=== PATIENT | male | born 1945 | race Caucasian/White ===

== ENCOUNTER 2021-08-03 09:34 | Inpatient (IN) | payer OTHER, SELFPAY ==
[2021-08-03] VITALS (14 sets, daily range): BP systolic 136–160; BP diastolic 80–99; PULSE 62–102; RESP 14–30; TEMP 36.2–36.9; O2SAT 95–99; BMI 21.4
--- NOTE | ~2021-08-03 | CT_ITS ---
EXAMINATION: CT brain wo con INDICATION: Left-sided numbness and tingling, gait abnormality COMPARISON: None TECHNIQUE: Standard unenhanced head CT. The dose-length product (DLP) was 605.33 mGy-cm. The mA was a djusted according to patient size. Iterative reconstruction technique was employed. FINDINGS: There is no acute intraparenchymal hemorrhage. No evidence of mass lesion. There is a subtl e area of low attenuation in the right thalamus.. There is mild periventricular and subcortical hypod ensity probably related to small vessel ischemic disease. There is mild prominence of the sulci and v entricles related to cerebral atrophy. Intracranial calcified cerebral atherosclerosis is noted. Ther e are no extra-axial collections. There is no mass effect or midline shift. The orbits and soft tissu es are unremarkable. The visualized sinuses and mastoid air cells are well aerated. IMPRESSION: 1. Subtle area of low attenuation of the right thalamus which could reflect early subacute infarct. 2. Age related findings. Reviewed, dictated and finalized at location A. IMPRESSION: 1. Subtle area of low attenuation of the right thalamus which could reflect ear ly subacute infarct. 2. Age related findings.
--- NOTE | ~2021-08-03 | US_ITS ---
EXAMINATION: US carotid duplex BI DATE: 08/03/2021 17:24 INDICATION: Stroke TECHNIQUE: Grayscale, color Doppler, and pulsed Doppler images of the cervical carotid arteries were obtained. The degree of vessel stenosis is placed in one of the following categories: normal, <50%, 5 0-69%, >=70% but less than near-occlusion, near-occlusion, or total occlusion. Note that percent sten osis relative to normal distal artery lumen diameter is indirectly measured from velocity measurement s as described by Rishi, et al. Radiology 2003; 229:340-346. COMPARISON: None. FINDINGS: RIGHT: The right common carotid artery (CCA) peak systolic velocity (PSV) is 76 cm/s. The right internal car otid artery (ICA) PSV is 72 cm/s. The right ICA end-diastolic velocity (EDV) is 20 cm/s. The right IC A/CCA PSV ratio is 0.9. Grayscale and color Doppler images yield an estimate of <50% diameter reducti on from plaque in the ICA. The external carotid artery (ECA) PSV is 115 cm/s. There is antegrade flow in the right vertebral artery. LEFT: The left CCA PSV is 83 cm/s. The left ICA PSV is 98 cm/s. The left ICA EDV is 25 cm/s. The left ICA/C CA PSV ratio is 1.2. Grayscale and color Doppler images yield an estimate of <50% diameter reduction from plaque in the ICA. The ECA PSV is 79 cm/s. The left vertebral artery is not identified. The flow void for the intracranial left vertebral artery appears diminutive on the prior MRI imaging also per formed on 08/04/2021. IMPRESSION: 1. <50% stenosis in the right internal carotid artery. 2. <50% stenosis in the left internal carotid artery. 3. Nonvisualization of the left vertebral artery, the intracranial portion of which appears diminutiv e on immediately prior MRI imaging of the head. Most commonly this is developmental although differen tial would include a more proximal high-grade stenosis. Reviewed, dictated and finalized at location A. IMPRESSION: 1. <50% stenosis in the right internal carotid artery. 2. <50% stenosis in the left internal carotid artery. 3. Nonvisualization of the left vertebral artery, the intracranial portion of w calebh appears diminutive on immediately prior MRI imaging of the head. Most comm only this is developmental although differential would include a more proximal high-grade stenosis.
--- NOTE | ~2021-08-03 | MR_ITS ---
EXAMINATION: MR brain/brain stem wo/w con DATE: 08/03/2021 16:48 INDICATION: Stroke 5 days prior with left upper extremity numbness and tingling and changing gait TECHNIQUE: Magnetic resonance imaging (MRI) of the brain and brainstem was performed without and with 13 mL Multihance intravenous contrast. Sequences included sagittal and axial T1-weighted SE, axial d iffusion-weighted FS SE, axial T2*-weighted GRE, axial T2-weighted FLAIR, and axial T2-weighted FSE. Postcontrast axial and coronal T1-weighted SE was obtained. Apparent diffusion coefficient (ADC) maps were created. COMPARISON: None. FINDINGS: There is a small focus of restricted diffusion at the right thalamus consistent with increased T2 sig nal consistent with acute to early subacute infarct. No intracranial hemorrhage or abnormal intracran ial mass lesion. There are additional scattered areas of nonspecific increased T2-weighted signal int ensity in the cerebral white matter, predominantly involving the deep and periventricular white matte r. There are no intraparenchymal signal abnormalities seen on the other pulse sequences. The ventricl es are symmetric and normal in size. There are no abnormal extra-axial fluid collections. Flow voids are seen in the cerebral arteries on the T2-weighted sequences consistent with their expected patency . The right vertebral artery is dominant with diminutive left vertebral artery. Moderate to severe ce rvical spondylosis. Mild mucoperiosteal thickening the bilateral ethmoid sinuses. Visualized orbits a nd soft tissues are unremarkable. There are no areas of abnormal enhancement on the post contrast agnieszka ges. IMPRESSION: 1. Small acute to early subacute infarct of the right thalamus. 2. Typical pattern of nonspecific periventricular predominant scattered white matter T2 hyperintensit y consistent with chronic small vessel ischemic disease. Reviewed, dictated and finalized at location A. IMPRESSION: 1. Small acute to early subacute infarct of the right thalamus. 2. Typical pattern of nonspecific periventricular predominant scattered white m atter T2 hyperintensity consistent with chronic small vessel ischemic disease.
--- NOTE | ~2021-08-03 | CT_ITS ---
EXAMINATION: CTA BRAIN/CAROTID DATE: 08/04/2021 17:41 INDICATION: Stroke. TECHNIQUE: Computed tomographic angiography (CTA) of the head and neck was performed with 200 mL Omni paque-300 intravenous contrast. Multiplanar reconstructions and maximum intensity projection 3D-recon structions of the carotid arteries and of the intracranial arteries were created by the technologist on a separate workstation. Precontrast CT of the head was also obtained. Automated exposure control and iterative reconstruction technique were employed.The dose-length product was 2690.78 mGy-cm. COMPARISON: Head CT and brain MR dated 08/03/2021 FINDINGS: Carotid arteries: There is atherosclerotic plaque along the bilateral common carotid arteries and lateral carotid bulbs . There is 0% stenosis of both the left and right carotid bulbs relative to normal distal artery lume n diameter (NASCET criteria). Thoracic aorta is normal in caliber with no significant atherosclerotic plaque or dissection. Mild biapical pleural-parenchymal scarring. Superior mediastinum and cervical soft tissues are unremarkable. Severe cervical spondylosis. Head: Again seen is a small subacute lacunar infarct at the right thalamus. No acute intracranial hemorrhag e, acute infarction or abnormal extra axial fluid collection. There is mild scattered white matter hy poattenuation consistent with chronic small vessel ischemic disease. Ventricles are normal and symme tric. Small arachnoid granulation along the superior sagittal sinus. No mass/mass effect. The orbits, paranasal sinuses and mastoid air cells are normal. Intracranial arteries Atherosclerotic calcification without hemodynamically significant stenosis along the bilateral caroti d siphons. The right vertebral artery is dominant. The distal basilar artery is diminutive supplying a patent right P1 segment. The majority of the flow to the right posterior cerebral artery and the ex clusive supply to the left posterior cerebral artery comes from the internal carotid arteries via a l arger caliber bilateral posterior communicating arteries. Bilateral A1 segments are patent. There is no hemodynamically significant stenosis in the vertebral, basilar and internal carotid arteries. Ther e are no aneurysms or thrombosis or dissection identified. Cerebral arterial arborization appears sy mmetric. IMPRESSION: 1. Atherosclerotic plaque with 0% stenosis of the left and right carotid bulbs relative to normal dis gopi artery lumen diameter (NASCET criteria). 2. Subacute right thalamic infarct. 3. 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 Reviewed, dictated and finalized at location A. IMPRESSION: 1. Atherosclerotic plaque with 0% stenosis of the left and right carotid bulbs relative to normal distal artery lumen diameter (NASCET criteria). 2. Subacute right thalamic infarct. 3. 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
--- NOTE | 2021-08-03 11:26 | ECG_ITS ---
Measurements Intervals [place] Rate: 75 P: 75 SC: 192 QRS: 28 QRSD: 86 T: 39 QT: 365 QTc: 409 Interpretive Statements SINUS RHYTHM EARLY PRECORDIAL R/S TRANSITION BORDERLINE ECG Electronically Signed On 08-03-2021 11:46:17 CDT by Clinton Hoyos D.O.
[2021-08-03 11:44] LABS: Basophils Absolute Auto 0.1 K/mm3 (0.0-0.1); Basophils Percent Auto 0.9 % (0.2-1.2); Eosinophils Percent Auto 0.7 % (0-4.4); Hematocrit 45.4 % (42.0-52.0); Hemoglobin 15.2 g/dL (14.0-18.0); Immature Granulocyte Absolute 0.02 K/mm3 (0.00-0.031); Immature Granulocyte Percent A 0.3 % (0-0.5); Lymphocytes Absolute Auto 1.56 K/mm3 (0.9-3.2); Lymphocytes Percent Auto 26.7 % (18.3-44.2); Mean Corpuscular HGB Conc 33.5 g/dl (32-36); Mean Corpuscular Hemoglobin 32.3 pg (26-34); Mean Corpuscular Volume 96.4 fl (80-100); Monocytes Absolute Auto 0.8 K/mm3 (0.1-0.6); Monocytes Percent Auto 13.7 % (2.6-8.5); Neutrophils Absolute Auto 3.4 K/mm3 (1.3-6.7); Neutrophils Percent Auto 57.7 % (45.5-73.1); Platelet Count Result 316 k/mm3 (150-375); Red Blood Count 4.71 M/mm3 (4.6-6.20); Red Cell Distribution Width 12.7 % (11.5-14.5); White Blood Count 5.8 K/mm3 (4.5-10.0)
[2021-08-03 12:02] LABS: INR 1.1; Prothrombin Time 13.3 Seconds (11.1-14.7)
[2021-08-03 12:03] LABS: Partial Thromboplastin Time 29.6 SECONDS (22.3-36.8)
[2021-08-03 12:25] LABS: Alanine Aminotransferase 12 U/L (6-50); Albumin Level 4.3 g/dL (3.5-5.1); Alkaline Phosphatase 81 U/L (38-126); Anion Gap 4 mmol/L (8-16); Aspartate Amino Transferase 43 U/L (17-59); Bilirubin,Total 0.4 mg/dL (0.2-1.3); Blood Urea Nitrogen 15 mg/dL (9-20); Calcium 9.1 mg/dL (8.4-10.2); Carbon Dioxide 30 mmol/L (22-30); Chloride 104 mmol/L (98-107); Estimated CRCL calculation 64 ml/min; Estimated Glomerular Filt Rate > 60; Glucose 112 mg/dL (65-110); Potassium 4.1 mmol/L (3.4-5.0); Sodium 138 mmol/L (137-145)
[2021-08-03 12:34] LABS: Troponin I < 0.012 ng/mL (0.000-0.034)
--- NOTE | 2021-08-03 12:36 | ED.NEUROSD ---
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 Patient keeps dropping stuff out of his left hand. Patient does not take medicine at home, does not smoke or uses drugs, drinks daily. Patient lives with . He denies fever, chills, nausea, vomiting, chest pain, shortness of breath, headache or trauma Related Data Home Medications Medication Instructions Recorded Confirmed No Home Medications 08/03/21 Allergies Allergy/AdvReac Type Severity Reaction Status Date / Time No Known Allergies Allergy Verified 08/03/21 11:24 Review of Systems Review of Systems: All systems reviewed & are unremarkable except as noted in HPI and below Exam Narrative: General appearance: Well-developed, well-nourished Skin: Normal color Head: Normocephalic, nontraumatic Eyes: Clear conjunctiva ENT: Oropharynx normal, ears normal, nose normal Neck: Supple, nontender Chest and respiratory: Airway patent, no respiratory distress, no accessory muscle use Heart: Regular rate/rhythm Abdomen: Soft, nontender, no organomegaly, quiet bowel sounds Vascular: Normal peripheral pulses, normal capillary refill. Musculoskeletal: Normal range of motion, nontender back Neurologic: Alert and oriented ?3, restless, shaky Course Course Emergency Course: Acute CVA, started 7 days ago, CAT scan showed infarction, admission to hospitalist, consult neurologist. Currently patient is restless could be secondary to alcoholism, last drink was last night Consultations Consultation #1: Dr. Leonard Date: 08/03/21 Time: 13:00 Vital Signs Vital signs: Vital Signs Temperature 36.9 C 08/03/21 10:00 Pulse Rate 81 08/03/21 10:00 Respiratory Rate 16 08/03/21 10:00 Blood Pressure 160/87 H 08/03/21 10:00 Pulse Oximetry 95 08/03/21 10:00 Temperature 36.2 C L 08/03/21 11:25 Pulse Rate 82 08/03/21 12:30 Respiratory Rate 14 08/03/21 12:30 Blood Pressure 136/80 08/03/21 12:30 Pulse Oximetry 98 08/03/21 12:30 MDM - Neuro Symptoms/Deficit Differential Diagnosis Differential diagnosis: Likely subarachnoid hemorrhage, cerebrovascular accident and transient cerebral ischemia Lab Data Result diagrams: 08/03/21 11:34 08/03/21 12:07 Labs: Lab Results 08/03/21 08/03/21 08/03/21 Range/Units 11:34 11:34 12:07 WBC 5.8 (4.5-10.0) K/mm3 RBC 4.71 (4.6-6.20) M/mm3 Hgb 15.2 (14.0-18.0) g/dL Hct 45.4 (42.0-52.0) % MCV 96.4 (80-100) fl MCH 32.3 (26-34) pg MCHC 33.5 (32-36) g/dl RDW 12.7 (11.5-14.5) % Plt Count 316 (150-375) k/mm3 MPV 9.0 (7.4-10.4) fl Immature Gran % (Auto) 0.3 (0-0.5) % Neut % (Auto) 57.7 (45.5-73.1) % Lymph % (Auto) 26.7 (18.3-44.2) % Gila % (Auto) 13.7 H (2.6-8.5) % Eos % (Auto) 0.7 (0-4.4) % Baso % (Auto) 0.9 (0.2-1.2) % Lymph # (Auto) 1.56 (0.9-3.2) K/mm3 Gila # (Auto) 0.8 H (0.1-0.6) K/mm3 Eos # (Auto) 0.0 (0-0.3) K/mm3 Baso # (Auto) 0.1 (0.0-0.1) K/mm3 Abs Immat Gran (auto) 0.02 (0.00-0.031) K/mm3 Absolute Neuts (auto) 3.4 (1.3-6.7) K/mm3 Absolute Nucleated RBC 0.0 (0.0-0.012) K/mm3
[2021-08-03] MEDS: ASPIRIN 325 MG TABLET PO (15:02)
--- NOTE | 2021-08-03 15:39 | ADMGEN ---
This patient, Ibrahima Bowie, was admitted to [facility] Surg Room 319-01. Patient/family oriented to hospital policies and general routines including ID bracelet, bed and alarms, visiting hours, pain management, procedures, bathroom and other care routines, personal items, smoking policy, room service/diet, and visiting hours. Information on how to activate the Rapid Response Team has been discussed. Patient/Family are encouraged to report perceived risks to care and to ask questions if they do not understand what they are told or what they should do.
--- NOTE | 2021-08-03 16:15 | PC.NURSE ---
to MRI per w/c
--- NOTE | 2021-08-03 16:50 | WPDNEURCNPN ---
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 and feeling unsteady while walking also complaining of dropping stuff out of his left hand he does not take any medication at home does not smoke does not take drugs though he drinks daily and lives with his gave no history of any other associated generalized symptomatology he was not taking any medication he is not allergic to any medications initial examination revealed him to have normal vital signs except the blood pressure 160/87 with subsequently came down to 136/80 routine lab was normal, patient has been admitted for further evaluation Review of Systems Review of Systems: All systems reviewed & are unremarkable except as noted in HPI and below PMFSH Social History Social History Smoking status: Never smoker Alcohol intake: current Drinks per week: 14 Substance use: former Substance use type: marijuana Last use: 1969 Spiritual care concerns: No Meds Home Medications and Allergies Home Medications Medication Instructions Recorded Confirmed Type No Home Medications 08/03/21 08/03/21 History Allergies Allergy/AdvReac Type Severity Reaction Status Date / Time No Known Allergies Allergy Verified 08/03/21 16:24 Vital Signs Vital Signs - 24 hr 08/03/21 10:00 08/03/21 11:25 08/03/21 11:35 Temperature 36.9 C 36.2 C L Pulse Rate 81 80 89 Respiratory Rate 16 17 16 Blood Pressure 160/87 H 142/88 H 142/93 H Pulse Oximetry 95 99 99 08/03/21 12:07 08/03/21 12:15 08/03/21 12:30 Temperature Pulse Rate 82 82 82 Respiratory Rate 20 18 14 Blood Pressure 136/80 Pulse Oximetry 96 97 98 08/03/21 12:45 08/03/21 13:34 08/03/21 13:45 Temperature Pulse Rate 102 H 85 91 Respiratory Rate 23 H 16 30 H Blood Pressure Pulse Oximetry 08/03/21 14:00 08/03/21 14:17 08/03/21 16:00 Temperature Pulse Rate 89 96 90 Respiratory Rate 22 H 23 H Blood Pressure 136/84 Pulse Oximetry 99 Results Labs CBC & Chem 7: 08/03/21 11:34 08/03/21 12:07 Labs: Short CBC 08/03/21 Range/Units 11:34 WBC 5.8 (4.5-10.0) K/mm3 Hgb 15.2 (14.0-18.0) g/dL Hct 45.4 (42.0-52.0) % Plt Count 316 (150-375) k/mm3 BMP 08/03/21 12:07 Sodium 138 Potassium 4.1 Chloride 104 Carbon Dioxide 30 BUN 15 Creatinine 0.80 Glucose 112 H Calcium 9.1 Cardiac Enzymes 08/03/21 08/03/21 Range/Units 12:07 12:07 Troponin I Cancelled < 0.012 Liver Function 08/03/21 Range/Units 12:07 Total Bilirubin 0.4 (0.2-1.3) mg/dL AST 43 (17-59) U/L ALT 12 (6-50) U/L Alkaline Phosphatase 81 (38-126) U/L Albumin 4.3 (3.5-5.1) g/dL
--- NOTE | 2021-08-03 19:56 | PM.IMHP ---
H&P: HPI History of Present Illness Date/Time: Patient requires inpatient monitoring with expected length of stay to exceed 2 midnights for management of care. 08/03/21 19:56 Chief Complaint: Left-sided weakness Narrative: Mr. Bowie is a 76-year-old gentleman who presented emergency room with complaints numbness and tingling to his left hand and foot that started 5 days ago. Patient states that 5 days ago he noticed some weakness to his left arm and tingling in his fingertips. Patient states that it progressively got worsened on he noticed left arm numbness and some mild lightheadedness and dizziness. Patient states that on Tuesday he then fell. Patient states that he did not want to come the emergency room for further evaluation because he did not think much of his symptoms. Patient denies any facial droop, slurring of speech, dysphagia, double vision, blurred vision, syncopal episodes, or near syncopal episodes. Patient states he does continue to have some numbness to his left finger tips and to his left rib cage. Upon evaluation emergency room patient underwent CT scan that showed subtle area of low attenuation of the right thalamus which could reflect early subacute infarct. Emergency room notified [facility] and since patient was outside of window for any intervention SP it was decided the patient be treated at this establishment. Neurology has been consulted. Patient states he has no past medical history and takes no medications at home. Patient states he does not smoke and has never smoked. Patient states he drinks approximately 2 beers today and has not had any surgeries. Review of Systems Review of Systems: A 12 point review of systems was completed patient all pertinent positive and negative per HPI the remainder are unremarkable. [facility] Past Medical History Medical History (Updated 08/03/21 @ 20:02 by Rin Beasley APRN) No pertinent past medical history Surgical History Surgical History (Updated 08/03/21 @ 20:02 by Rin Beasley APRN) No pertinent past surgical history Social History Social History Smoking status: Never smoker Alcohol intake: current Drinks per week: 14 Substance use: former Substance use type: marijuana Last use: 1969 Spiritual care concerns: No Meds Home Medications and Allergies Home Medications Medication Instructions Recorded Confirmed Type No Home Medications 08/03/21 08/03/21 History Allergies Allergy/AdvReac Type Severity Reaction Status Date / Time No Known Allergies Allergy Verified 08/03/21 16:24 Vital Signs Vital Signs - 24 hr 08/03/21 10:00 08/03/21 11:25 08/03/21 11:35 Temperature 36.9 C 36.2 C L Pulse Rate 81 80 89 Respiratory Rate 16 17 16 Blood Pressure 160/87 H 142/88 H 142/93 H Pulse Oximetry 95 99 99 08/03/21 12:07 08/03/21 12:15 08/03/21 12:30 Temperature Pulse Rate 82 82 82 Respiratory Rate 20 18 14 Blood Pressure 136/80 Pulse Oximetry 96 97 98 08/03/21 12:45 08/03/21 13:34 08/03/21 13:45 Temperature Pulse Rate 102 H 85 91 Respiratory Rate 23 H 16 30 H Blood Pressure Pulse Oximetry 08/03/21 14:00 08/03/21 14:17 08/03/21 16:00 Temperature Pulse Rate 89 96 90 Respiratory Rate 22 H 23 H Blood Pressure 136/84 Pulse Oximetry 99 Exam Narrative: Constitutional: Patient is well-nourished in no acute distress. Patient is alert and oriented x3 HEENT: Moist mucous membranes. No scleral icterus. No lymphadenopathy. Neck: No carotid bruits noted no JVD noted Lungs: Lung sounds are clear to auscultation bilaterally. No accessory muscle use. No rhonchi, rales, or wheezes noted. Cardiovascular: Apical pulse is regular rate and rhythm. S1-S2 noted, no S3 or S4 noted. No gallops, murmurs, or rubs noted. Abdomen: Soft, round, and nontender. No palpable masses. Extremities: No edema. Nontender.
[2021-08-04] VITALS (9 sets, daily range): BP systolic 120–136; BP diastolic 74–95; PULSE 73–82; RESP 18–20; TEMP 36.1–36.9; O2SAT 97–100
--- NOTE | 2021-08-04 | ECHO_ITS ---
Patient Info Name: Ibrahima Bowie Age: 76 years : 1945 Gender: Male Ht: 69 in Wt: 145 lbs BSA: 1.79 m2 HR: 66 bpm BP: 145 / 99 mmHg Technical Quality: Fair Exam Date: 08/04/2021 9:10 AM Exam Location: [facility] Patient Status: Inpatient Admit Date: 08/03/2021 Staff Ordering Physician: Rin Beasley APRN Environmental Services Aide: Bijan Carmichael RDCS, RT Attending Provider: Mercedes Vega MD Referring Physician: Layla JORDAN Exam Type: CA echo doppler color flow Study Info Indications I63.119 - Cerebral infarction due to embolism of unspecified vertebral artery Complete two-dimensional, color flow and Doppler transthoracic echocardiogram is performed. Strain analysis performed. Summary 1. Complete two-dimensional, color flow and Doppler transthoracic echocardiogram is performed. 2. Left ventricular chamber dimension is normal. 3. Left ventricular systolic function is normal, estimated at 60-65%. 4. The left ventricular diastolic function is grade I diastolic dysfunction. 5. E/e' 5 is not elevated. 6. Global longitudinal strain is normal at -17.4%. 7. There is mild aortic valve sclerosis. 8. There is mild to moderate aortic valve regurgitation. 9. There is mild mitral valve regurgitation. 10. There is trace tricuspid valve regurgitation. 11. Dilated inferior vena cava with >50% collapse upon inspiration consistent with elevated right atrial pressure, 10 mmHg. Left Ventricle E/e' 5 is not elevated. Global longitudinal strain is normal at -17.4%. The left ventricular diastolic function is grade I diastolic dysfunction. Left ventricular chamber dimension is normal. Left ventricular systolic function is normal, estimated at 60-65%. Right Ventricle Right ventricular systolic function is normal and with normal TAPSE 2.0 cm. Right ventricular chamber dimension is normal. Left Atria Left atrial chamber dimension is normal. Right Atria Right atrial chamber dimension is normal. Aortic Valve The aortic valve is trileaflet. There is mild aortic valve sclerosis. There is no aortic valve stenosis. There is mild to moderate aortic valve regurgitation. Pulmonic Valve There is no pulmonic regurgitation. Mitral Valve There is no mitral valve stenosis. There is mild mitral valve regurgitation. Tricuspid Valve RVSP is not calculated due to an inadequate TR jet. There is trace tricuspid valve regurgitation. Pericardium/Pleural There is no pericardial effusion. Inferior Vena Cava Dilated inferior vena cava with >50% collapse upon inspiration consistent with elevated right atrial pressure, 10 mmHg. Aorta The aortic root size at the sinus of Valsalva is normal. Left Ventricular Outflow Tract Name Value Normal LVOT 2D LVOT Diameter 2.2 cm LVOT Doppler LVOT Peak Gradient 3 mmHg LVOT Mean Gradient 2 mmHg LVOT VTI 16 cm LVOT VTI/AV VTI Ratio 0.8 LVOT Stroke Volume 61 ml LVOT CO 4.5 l
--- NOTE | 2021-08-04 09:18 | PCOTNOTE ---
Attempted OT evaluation, unable to complete at this time due to active bedrest orders, RN placed a call to hospitalist, will follow and attempt when bedrest orders are removed.
[2021-08-04] MEDS: ASPIRIN 81 MG CHEWABLE TABLET PO (11:08)
[2021-08-04] MEDS: ENOXAPARIN 40 MG/0.4 ML SYRINGE SUB-Q (11:08)
[2021-08-04] MEDS: ATORVASTATIN 20 MG TABLET PO (11:08)
--- NOTE | 2021-08-04 12:15 | PM.DS ---
DS: Admitting Diagnosis Discharge Date 08/04/2021 Admitting Diagnosis CVA right thalamus DS: Discharge Diagnosis Discharge Diagnosis (1) Cerebrovascular accident: Qualifiers: CVA mechanism: unspecified Qualified Code(s): I63.9 - Cerebral infarction, unspecified Code(s): I63.9 - Cerebral infarction, unspecified Status: Acute Assessment and Plan: Neurology has been consult and appreciate further recommendations. Echocardiogram did not reveal acute cardiopulmonary abnormalities Carotid Dopplers negative for acute findings Patient was placed on aspirin, atorvastatin and metoprolol Encouraged to follow-up with neurology DS: Summary Hospital Course Reason for hospitalization: Numbness and tingling to the left extremity Right pelvis CVA Hospital Course: 76-year-old gentleman with no past medical history, patient reports alcohol consumption, 2 beers daily. Denies smoking. Who presented emergency room with complaints numbness and tingling to his left hand and foot that started 5 days ago. Patient states that 5 days ago he noticed some weakness to his left arm and tingling in his fingertips. Patient states that it progressively got worsened on he noticed left arm numbness and some mild lightheadedness and dizziness. Patient states that on Tuesday he then fell. Patient states that he did not want to come the emergency room for further evaluation because he did not think much of his symptoms. Patient denies any facial droop, slurring of speech, dysphagia, double vision, blurred vision, syncopal episodes, or near syncopal episodes. Patient states he does continue to have some numbness to his left finger tips and to his left rib cage. Upon evaluation emergency room patient underwent CT scan that showed subtle area of low attenuation of the right thalamus which could reflect early subacute infarct. Emergency room notified [facility] and since patient was outside of window for any intervention SP it was decided the patient be treated at this establishment. Neurology was consulted from the emergency department. During the patient's hospitalization carotid Dopplers were obtained which is negative for acute findings, echocardiogram and Neurology was consulted and followed the patient on the floor. Patient was started on aspirin and atorvastatin. As well as metoprolol for blood pressure control. Patient was agreeable to following up with Neurology as an outpatient. He was educated on signs symptoms to follow and monitor for in the future. No acute events reported by RN during the night. Status at Discharge Cognitive/behavioral status at discharge: She is alert and oriented x4 Functional status at discharge: independent ambulation Overall status at discharge: patient is back to baseline Time Spent with Patient Time attestation: Total time spent providing and/or coordinating discharge services: Time spent: Less than 30 minutes Exam Narrative: Constitutional: Patient is well-nourished in no acute distress. Patient is alert and oriented x3 HEENT: Moist mucous membranes. No scleral icterus. No lymphadenopathy. Neck: No carotid bruits noted no JVD noted Lungs: Lung sounds are clear to auscultation bilaterally. No accessory muscle use. No rhonchi, rales, or wheezes noted. Cardiovascular: Apical pulse is regular rate and rhythm. S1-S2 noted, no S3 or S4 noted. No gallops, murmurs, or rubs noted. Abdomen: Soft, round, and nontender. No palpable masses. Extremities: No edema. Nontender. Skin: No rashes or lesions. Warm and dry. Skin is intact. Neurological: No focal neurological deficits. Cranial nerves II-XII grossly intact. Psychiatric: Cooperative, appropriate mood, and affect DS: Data Data Completed and Pending Labs on day of discharge: Labs from last 24 hours 08/03/21 12:07 Sodium 138 Potassium 4.1 Chloride 104 Carbon Dioxide 30 Anion Gap 4 L BUN 15 Creatinine 0.
--- NOTE | 2021-08-04 13:39 | PM.IMPN ---
Progress Note: A&P Assessment and Plan (1) Cerebrovascular accident: Qualifiers: CVA mechanism: unspecified Qualified Code(s): I63.9 - Cerebral infarction, unspecified Code(s): I63.9 - Cerebral infarction, unspecified Status: Acute Assessment and Plan: Neurology has been consult and appreciate further recommendations. Echocardiogram did not reveal acute cardiopulmonary abnormalities Carotid Dopplers negative for acute findings Patient was placed on aspirin, atorvastatin and metoprolol Encouraged to follow-up with neurology Pending CTA of the brain and neck to visualize a carotid that was not appropriately seen in previous imaging Subjective Date/time seen: 08/04/21 13:39 Patient is alert and oriented x4. He was up walking around in his room. He is very anxious. Patient reports he drinks 2 alcoholic beverages a night as well as gin and tonics. Dr. Diallo evaluated the patient this morning and images. Patient will stay an additional night for a CTA of the brain and neck due to poor visualization of artery on previous studies. Patient has been started on aspirin, atorvastatin and beta-blanquita. Patient denies any acute pain or acute deficits. Review of Systems Review of Systems: All systems reviewed & are unremarkable except as noted in HPI and below Exam Narrative: General: No acute distress. Mental Status: Awake, alert and oriented to person, place, and time with clear speech. Skin: Skin in warm, dry and intact without rashes or lesions. Head: Normocephalic and atraumatic. Eyes: Conjunctivae are clear without exudates or hemorrhage. Sclera is non-icteric. EOM are intact, PERRLA. Ears: The external ear and canal are non-tender and without swelling or discharge. Nose: Nasal mucosa is pink and moist. Septum midline. Nares patent bilaterally. Throat: Oral mucosa pink and moist with good dentition. Tongue midline. Neck: The neck supple without adenopathy. Trachea midline. No JVD. Cardiac: S1 and S2 regular rate and rhythm. No murmurs, gallops, or rubs auscultated. Respiratory: Chest wall symmetric, nontender and without deformity or trauma. Respirations even and unlabored. Lung sounds are clear to auscultation in all lobes bilaterally without wheezes, rhonchi, or rales. Abdominal: Abdomen soft, round and non-tender to palpation. Bowel sounds present and normoactive in all 4 quadrants. Spine: Neck and back with grossly normal curvature, no deformity in appearance or signs of trauma. Extremities: Upper and lower extremities atraumatic without tenderness or deformity. Full range of motion and muscle strength 5/5 to all extremities bilaterally. Neurological: Full and symmetric motor and light touch sensation bilaterally. Cranial nerves II-XII grossly intact. Objective Data Vital Signs Vital Signs: Vital Signs - 24 hr 08/03/21 13:45 08/03/21 14:00 08/03/21 14:17 Temperature Pulse Rate 91 89 96 Respiratory Rate 30 H 22 H 23 H Blood Pressure 136/84 Pulse Oximetry 99 08/03/21 16:00 08/03/21 20:00 08/03/21 22:00 Temperature 97.8 F Pulse Rate 90 72 62 Respiratory Rate 18 Blood Pressure 145/99 H Pulse Oximetry 96 08/04/21 00:00 08/04/21 04:00 08/04/21 06:00 Temperature 98.4 F Pulse Rate 81 74 80 Respiratory Rate 18 Blood Pressure 120/95 H Pulse Oximetry 100 Intake/Output Intake/Output: Intake & Output 08/01/21 08/02/21 08/03/21 08/04/21 23:59 23:59 23:59 23:59 Intake Total 1740 1100 Balance 1740 1100 Meds/Results Medications: Active Medications Generic Name Dose Route Start Last Admin Trade Name Freq PRN Reason Stop Dose Admin Acetaminophen 650 mg 08/03/21 12:50 Acetaminophen 325 Mg Tablet PO Q4H PRN Mild Pain (1-3) or Fever Aspirin 81 mg 08/04/21 08:00 08/04/21 11:08 Aspirin 81 Mg Chewable Tablet PO 81 mg DAILY@0800 CASANDRA Administration Atorvastatin Calcium 20 mg 08/04/21 09:00 08/04/21 11:08 Atorvastatin
[2021-08-04 17:15] LABS: Cholesterol 198 mg/dL (0-200); HDL Direct 48 mg/dL; Triglycerides 146 mg/dL (<150)
[2021-08-04 17:25] LABS: LDL Cholesterol Direct 117 mg/dL
[2021-08-05] VITALS (7 sets, daily range): BP systolic 107–120; BP diastolic 82–90; PULSE 77–104; RESP 16–20; TEMP 36.2–36.4; O2SAT 94–97
[2021-08-05] MEDS: ASPIRIN 81 MG CHEWABLE TABLET PO (09:20)
[2021-08-05] MEDS: ATORVASTATIN 20 MG TABLET PO (09:20)
[2021-08-05] MEDS: ENOXAPARIN 40 MG/0.4 ML SYRINGE SUB-Q (09:20)
--- NOTE | 2021-08-05 12:30 | PM.DS ---
DS: Admitting Diagnosis Discharge Date 08/05/21 Admitting Diagnosis left sided paresthesias DS: Discharge Diagnosis Discharge Diagnosis (1) Cerebrovascular accident: Qualifiers: CVA mechanism: unspecified Qualified Code(s): I63.9 - Cerebral infarction, unspecified Code(s): I63.9 - Cerebral infarction, unspecified Status: Acute Assessment and Plan: 76-year-old male with no significant past medical history who was admitted to [facility] through the ER where he reported stroke-like symptoms since last Tuesday, to include numbness on the left side of the face and the left upper and lower extremity along with lightheadedness, weakness of hand corn sheller. Patient states he did not have the classic facial droop that he associates with having a stroke, so he did not come in for some time. CT in the ER showed subtle area of low attenuation in the right thalamus which could reflect early subacute infarct. ER notified [facility] but patient was outside the window for intervention and it was decided that the patient would be treated at this establishment. Today patient explains his only residual symptom is numbness in the left hand, with no residual strength deficits, speech changes, visual changes, facial droop, chest pain, shortness a breath, dizziness. She is feeling well today, and after discussing our findings, he has no additional questions today. Echocardiogram revealed normal LVEF at 60-65%, mild aortic valve sclerosis, mild to moderate aortic valve regurgitation, mild mitral valve regurgitation. 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 MRI brain showed small acute to early subacute infarct of the right thalamus, and typical pattern of nonspecific periventricular predominant scattered white matter consistent with chronic small-vessel ischemic disease. Carotid Dopplers were negative for acute findings Neurology was consulted and provided the following recommendations: Patient was started on aspirin, atorvastatin, and metoprolol, and we will continue this medication outpatient. Follow-up in 4 weeks for outpatient care. DS: Summary Hospital Course Reason for hospitalization: CVA Hospital Course: See above for hospital course Status at Discharge Overall status at discharge: patient is progressing back to baseline Time Spent with Patient Time attestation: Total time spent providing and/or coordinating discharge services: 35 mins Time spent: Greater than 30 minutes Exam Narrative: GENERAL APPEARANCE: Alert and oriented x 3, in no apparent distress. HEENT: PERRL, EOMI. Sclerae anicteric. Moist mucous membranes. NECK: Supple. No JVD or obvious carotid bruits. RESPIRATORY: Respirations are nonlabored. Breath sounds are equal and clear bilaterally. No wheezes, Rhonchi, or rales. CARDIOVASCULAR: Regular rate and rhythm with normal S1-S2. No murmurs, gallops, or rubs. GASTROINTESTINAL: Soft, flat, and benign. No mass, tenderness, guarding, or rebound. No organomegaly or hernia. Bowel sounds are present. SKIN: Warm, dry, well perfused. Good turgor. No lesions, nodules, or rashes noted. Warm and dry. No rash or lesions on limited exam. EXTREMITIES: No cyanosis, clubbing, or edema. Radial and pedal pulses intact. Strength intact, with full range of motion. NEUROLOGICAL: Alert. Cranial nerves 2-12 are grossly intact. No gross focal deficits to casual conversation. PSYCHIATRIC: Pleasant and cooperative with normal mood and affect. DS: Data Data Completed and Pending Labs on day of discharge: Labs from last 24 hours 08/04/21 16:55 Triglycerides
== END 2021-08-05 16:50 | disposition home or self-care (01) | DRG 66 ==
LOC: ANHED 13:02 → ANH3MEDSUR 14:38
PROVIDERS: Family Medicine; Nurse Practitioner Adult Health; Admitting Provider Hospitalist; Emergency Provider Emergency Medicine; PCP Family Medicine; Visit Provider Student in an Organized Health Care Education/Training Program
DX: I63.9 Cerebral infarction, unspecified (principal)
CPT/HCPCS: 36415; 70450; 70496; 70498; 70553; 80053; 80061; 84484; 85025; 85610; 85730; 93005; 93306; 93880; 97161; 97165; 99285; A9270; A9577; J1650; Q9967